=== PATIENT | female | born 1935 | race Asian ===

== ENCOUNTER 2016-09-04 09:13 | Day surgery (SDC) | payer OTHER ==
[~2016-09-04] VITALS: Ht 157.5 cm; Wt 41.0 kg
[2016-09-04] VITALS (14 sets, daily range): BP systolic 147–164; BP diastolic 59–72; PULSE 52–65; RESP 15–22; Ht 157.5 cm; Wt 41.0 kg
[~2016-09-04 09:13] MED LIST: CEFAZOLIN 2 GM/50 ML (PMX) 50 ML IVPB SCH; SOD CHLORIDE 0.9% 1,000 ML IV SCH
[2016-09-04] MEDS ORDERED: LOSA100T7 PO (09:54)
[2016-09-04] MEDS ORDERED: DIPH25CA6 PO (09:54)
[2016-09-04] MEDS ORDERED: DOCU-159 PO (09:54)
[2016-09-04] MEDS ORDERED: SITA50TA2 PO (09:54)
[2016-09-04] MEDS ORDERED: CALC1TAB32 PO (09:54)
[2016-09-04] MEDS ORDERED: MEPERIDINE 25 MG INJ IV PRN (11:00)
[2016-09-04] MEDS ORDERED: OXYCODONE/ACETAMINOPHEN (5/325) TAB PO PRN (11:00)
[2016-09-04] MEDS ORDERED: DIPHENHYDRAMINE 50 MG INJ IV PRN (11:00)
[2016-09-04] MEDS ORDERED: HYDROmorphONE (0.2 MG/ML) 10ML SYG IV PRN (11:00)
[2016-09-04] MEDS ORDERED: ONDANSETRON 4 MG INJ IV PRN (11:00)
[2016-09-04] MEDS ORDERED: FENTAnyl 50 MCG/ML VIAL IV PRN (11:00)
[2016-09-04] MEDS ORDERED: BUPIVACAINE 0.25% (MPF) 30 ML INJ ONE ×2 (11:09→12:04)
[2016-09-04] MEDS ORDERED: LIDOCAINE 2% (SDV) 5 ML INJ ONE (11:44)
[2016-09-04] MEDS ORDERED: LABETALOL HCL 20MG INJ ONE (11:44)
[2016-09-04] MEDS ORDERED: ONDANSETRON 4 MG INJ ONE (11:44)
[2016-09-04] MEDS ORDERED: PROPOFOL 20 ML ONE (11:44)
[2016-09-04] MEDS ORDERED: FAMOTIDINE 20 MG INJ ONE (11:44)
[2016-09-04] MEDS ORDERED: FENTAnyl 50 MCG/ML VIAL ONE (11:44)
[2016-09-04] MEDS ORDERED: SUCCINYLCHOLINE CHLORIDE 100 MG/5 ML SYG IV ONE (11:44)
[2016-09-04] MEDS ORDERED: KETOROLAC 30 MG INJ ONE (12:36)
--- NOTE | 2016-09-04 12:50 | OPR ---
Date/Time of Note Date/Time of Note DATE: 09/04/16 TIME: 12:44 Operative Report Procedure Date: Sep 04, 2016 Preoperative Diagnosis internal and external hemorrhoids Postoperative Diagnosis same Operation Performed 1. proctoplasty for prolapse of mucous membrane cpt code 77507 2. ligation of internal hemorrhoids, multiple procedures cpt code 96959 3. rigid proctoscopy 4. therapeutic subcutaneous injection of marcaine cpt code 99454 Surgeon: Odessa WILEY Indications This is a this is an 81-year-old female with internal/external hemorrhoids. She required surgical repair. Risks alternatives benefits and percent were discussed the patient. Patient expresses understanding since the operation. Procedure Description Patient is taken to the OR and prepped and draped in usual sterile fashion surgical timeout was performed IV antibiotics were given. Initial examination with a rigid proctoscopy performed no evidence of any lesions or masses in the anal canal. THC device is used to place [id number] 2-0 Vicryl sutures to ligate the internal hemorrhoidal arteries in multiple quadrants. This is performed under ultrasound guidance. This is the ligation of the internal hemorrhoids and multiple locations. Proctoplasty was then performed by placing running 2-0 Vicryl sutures from proximal to distal to the dentate line tied down in all quadrants. This allowed for the proctoplasty. Therapeutic injection of subcutaneous tissues with Marcaine is then placed. Anal canal was reexamined for patency is good patency. The surgical site is hemostatic dry dressings were applied. Odessa WILEY Sep 04, 2016 12:50
[2016-09-04] MEDS ORDERED: hydrALAzine 20 MG INJ IV PRN (13:00)
[2016-09-04] MEDS ORDERED: HYDROCODONE/APAP (5/325) TAB PO ONE (13:00)
[2016-09-04] MEDS ORDERED: LABETALOL HCL 20MG INJ IV PRN (13:00)
== END 2016-09-04 15:05 | disposition home or self-care (01) ==
LOC: SDS 09:13
PROVIDERS: ATTEND Surgery
DX: K64.4 Residual hemorrhoidal skin tags (principal); K64.8 Other hemorrhoids; M19.90 Unspecified osteoarthritis, unspecified site; I12.9 Hypertensive chronic kidney disease with stage 1 through stage 4 chronic kidney disease, or unspecified chronic kidney disease; N18.2 Chronic kidney disease, stage 2 (mild); E11.22 Type 2 diabetes mellitus with diabetic chronic kidney disease
CPT/HCPCS: 45505; 46946; 82962; J1885; J2405; J3010; J7999